=== PATIENT | female | born 1975 | race Caucasian/White ===

== ENCOUNTER → 2016-10-20 | Outpatient (CLI) | payer MEDICAID ==
--- NOTE | 2016-10-20 10:47 | US ---
Complete Pelvic Ultrasound Indication: Skylab IUD insertion January 2016. Occasional spotting. Technique: Transabdominal and transvaginal pelvic ultrasound is performed. Findings: Uterus measures 6.9 x 2.5 x 3.7 cm. The IUD is in good position. Top of it is at the fundus . The canal measures 1 mm. There is a small peripherally located intramural hypoechoic nodule of 6 x 5 x 8 mm, representing a tiny fibroid. Vascularity of the uterus is normal. Right ovary measures 2.7 x 1.5 x 3.2 cm. Left ovary measures 4.1 x 1.7 x 3.1 cm. Both are sonographic ally normal. No free fluid in the pelvis. Impression: Good positioning of IUD. Endometrial lining at 1 mm in size.
== END ==
LOC: FIMAGING 09:42
PROVIDERS: ATTEND Obstetrics & Gynecology Gynecology
DX: Z30.430 Encounter for insertion of intrauterine contraceptive device (principal); N92.6 Irregular menstruation, unspecified